=== PATIENT | female | born 1980 | race Caucasian/White ===

== ENCOUNTER 2017-10-13 10:50 | Inpatient (IN) | payer OTHER ==
[~2017-10-13] VITALS: Ht 153 cm; Wt 65.3 kg
[2017-10-13 11:23] VITALS: BP 111/66
[2017-10-13] MEDS ORDERED: RINGERS SOLUTION,LACTATED 1,000 ML IV SCH (12:45)
[2017-10-13] MEDS ORDERED: RINGERS SOLUTION,LACTATED 1,000 ML IV ONE (14:32)
[2017-10-13] MEDS ORDERED: METOCLOPRAMIDE HCL 5 MG/ML 2 ML VIAL IVP ONE ×2 (14:45→22:20)
[2017-10-13] MEDS ORDERED: CITRIC ACID/SODIUM CITRATE 30 ML SOLUTION UDCUP PO ONE (14:45)
[2017-10-13 15:16] LABS: BASOPHILS % (AUTO) 0.3 % (0.0-2.0); EOSINOPHILS % (AUTO) 0.7 % (1.0-6.0); HEMOGLOBIN 13.3 g/dL (12.0-16.0); LYMPHOCYTES # (AUTO) 1.3 K/uL (1.0-4.8); LYMPHOCYTES % (AUTO) 13.3 % (22.0-44.0); MEAN CORPUSCULAR HEMOGLOBIN 32.9 pg (26.0-34.0); MEAN CORPUSCULAR HGB CONC 35.8 G/dL (31.0-37.0); MEAN CORPUSCULAR VOLUME 92 fL (80-100); MONOCYTES # (AUTO) 0.8 K/uL (0.1-1.0); MONOCYTES % (AUTO) 7.9 % (2.0-9.0); NEUTROPHILS # (AUTO) 7.5 K/uL (1.8-7.7); NEUTROPHILS % (AUTO) 77.8 % (40.0-70.0); PLATELET COUNT (AUTO)-OB 208 K/uL (150-450); RED BLOOD CELL COUNT(AUTO) 4.03 MIL/uL (4.00-5.20); RED CELL DISTRIBUTION WIDTH 13.5 % (11.5-14.5)
[2017-10-13] MEDS ORDERED: MIDAZOLAM HCL 2 MG/2 ML VIAL ONE (16:21)
[2017-10-13] MEDS ORDERED: FentaNYL CITRATE-PF 100 MCG/2 ML VIAL ONE (16:22)
[2017-10-13] MEDS ORDERED: MORPHINE SULFATE/PF 1 MG/ML 10 ML AMP ONE (16:22)
[2017-10-13] MEDS ORDERED: DiphenhydrAMINE HCL 50 MG/ML VIAL IVP PRN (17:15)
[2017-10-13] MEDS ORDERED: FentaNYL CITRATE-PF 100 MCG/2 ML VIAL IVP PRN ×2 (17:15)
[2017-10-13] MEDS ORDERED: ONDANSETRON HCL 4 MG/2 ML VIAL IVP PRN (17:15)
[2017-10-13] MEDS ORDERED: NALOXONE HCL 0.4 MG/ML VIAL IVP PRN (17:15)
[2017-10-13] MEDS ORDERED: MEPERIDINE-PF 25 MG/ML SYRINGE IVP PRN (17:15)
[2017-10-13] MEDS ORDERED: HYDROmorphone 2 MG/ML SYRINGE IVP PRN (17:15)
[2017-10-13] MEDS ORDERED: ACETAMINOPHEN/CODEINE 300-30 MG TABLET PO PRN ×2 (17:30)
[2017-10-13] MEDS ORDERED: LANOLIN 7 GM OINTMENT TP PRN (17:30)
[2017-10-13] MEDS ORDERED: OXYGEN THERAPY IH SCH ×2 (20:00)
[2017-10-13] MEDS: DEXTROSE 5%-0.45% SODIUM CHL 1,000 ML IV SCH (20:24)
[2017-10-13] MEDS ORDERED: DEXAMETHASONE SOD PHOS 4 MG/ML VIAL IVP ONE (22:20)
[2017-10-13] MEDS ORDERED: ONDANSETRON HCL 4 MG/2 ML VIAL IVP ONE (22:20)
[2017-10-13] MEDS ORDERED: NEOSTIGMINE METHYLSULFATE 1 MG/ML 10 ML VIAL IVP ONE (22:20)
[2017-10-13] MEDS ORDERED: LIDOCAINE HCL/PF 2% 5 ML VIAL IM ONE (22:20)
[2017-10-13] MEDS ORDERED: KETOROLAC TROMETHAMINE 60 MG/2 ML VIAL IM ONE (22:20)
[2017-10-14] MEDS: DEXTROSE 5%-0.45% SODIUM CHL 1,000 ML IV SCH (04:06)
[2017-10-14] MEDS: IBUPROFEN 800 MG TABLET PO SCH ×3 (10:57→23:24)
[2017-10-14] MEDS: MAGNESIUM HYDROXIDE SUSPENSION 30 ML UDCUP PO SCH (21:36)
[2017-10-15] MEDS: IBUPROFEN 800 MG TABLET PO SCH ×3 (05:06→18:56)
[2017-10-15] MEDS: MAGNESIUM HYDROXIDE SUSPENSION 30 ML UDCUP PO SCH ×2 (09:09→21:54)
[2017-10-15] MEDS ORDERED: SENNA/DOCUSATE SODIUM 187-50 MG TABLET PO ONE (09:45)
[2017-10-16] MEDS: IBUPROFEN 800 MG TABLET PO SCH ×2 (00:28→06:03)
[2017-10-16] MEDS: MAGNESIUM HYDROXIDE SUSPENSION 30 ML UDCUP PO SCH (09:32)
[2017-10-16] MEDS ORDERED: ACET1TAB12 PO (10:43)
[2017-10-16] MEDS ORDERED: IBUP-2071 PO (10:44)
[2017-10-16] MEDS ORDERED: DSS100 PO (10:45)
== END 2017-10-16 14:05 | disposition home or self-care (01) | DRG 766 ==
LOC: 4S 10:50 → OBSVTOIN 10:50 → 4S 19:13
PROVIDERS: ADMIT Obstetrics & Gynecology; ATTEND Obstetrics & Gynecology
PROC: 10D00Z1 Extraction of Products of Conception, Low, Open Approach (ICD-10-PCS; principal; 2017-10-13)
DX: O69.81X0 Labor and delivery complicated by cord around neck, without compression, not applicable or unspecified (principal); O09.513 Supervision of elderly primigravida, third trimester; O34.211 Maternal care for low transverse scar from previous cesarean delivery; Z37.0 Single live birth; Z3A.38 38 weeks gestation of pregnancy
CPT/HCPCS: 86850; 86900; 86901; 87081; J0690; J1100; J1885; J2250; J2405; J2765; J3010; J3490; J7120